=== PATIENT | male | born 1985 | race Caucasian/White ===

== ENCOUNTER 2022-12-28 07:21 | Day surgery (SDC) | payer OTHER ==
[~2022-12-28 07:21] MED LIST: AMPI500 PO
== END 2022-12-28 23:13 | disposition home or self-care (01) ==
LOC: CT 07:21
DX: R07.89 Other chest pain (principal); K21.9 Gastro-esophageal reflux disease without esophagitis; Z87.891 Personal history of nicotine dependence
CPT/HCPCS: 75574; Q9967